=== PATIENT | female | born 1985 | race Caucasian/White ===

== ENCOUNTER → 2017-05-17 | Outpatient (CLI) | payer OTHER ==
[~2017-05-17] MED LIST: ALB18R INH; AMOX875T60 PO; BENZ200C15 PO; CEPH500C24 PO; CHOL10005 PO; CODE118S5 PO; GOLYTE PO; HYDR-2966 PO; HYDR2TAB74 PO; IBUP800T37 PO; LABE100T28 PO; PREN-127 PO; VENL75CA4 PO
== END ==
LOC: LAB 12:22
PROVIDERS: ATTEND Obstetrics & Gynecology
DX: O20.0 Threatened abortion (principal)
CPT/HCPCS: 36415; 84702; 86850; 86900; 86901

== ENCOUNTER → 2017-05-19 | Outpatient (CLI) | payer OTHER | LOC: LAB 11:08 | PROVIDERS: ATTEND Obstetrics & Gynecology | DX: O20.0 Threatened abortion (principal) | CPT/HCPCS: 36415; 84702 ==

== ENCOUNTER → 2017-08-08 | Outpatient (CLI) | payer OTHER ==
[~2017-08-08] MED LIST changes: +FLUT16SP19 NS; +MAGN27TA6 PO; +MULT-1335 PO
== END ==
LOC: LAB 15:00
PROVIDERS: ATTEND Obstetrics & Gynecology
DX: O26.812 Pregnancy related exhaustion and fatigue, second trimester (principal)
CPT/HCPCS: 36415; 84443

== ENCOUNTER → 2017-08-29 | Outpatient (CLI) | payer OTHER | LOC: LAB 14:58 | PROVIDERS: ATTEND Obstetrics & Gynecology | DX: O10.919 Unspecified pre-existing hypertension complicating pregnancy, unspecified trimester (principal) | CPT/HCPCS: 36415; 82040; 82247; 82310; 82374; 82435; 82565; 82570; 82947; 84075; 84132; 84155; 84156; 84295; 84450; 84460; 84520 ==

== ENCOUNTER → 2017-09-04 | Outpatient (CLI) | payer OTHER | LOC: LAB 08:16 | PROVIDERS: ATTEND Obstetrics & Gynecology | DX: I10 Essential (primary) hypertension (principal); O10.919 Unspecified pre-existing hypertension complicating pregnancy, unspecified trimester | CPT/HCPCS: 84156 ==

== ENCOUNTER → 2017-09-11 | Outpatient (CLI) | payer OTHER ==
--- NOTE | 2017-09-11 13:41 | RADIOLOGY IMAGING REPORT ---
FACILITY: [facility] [place] PATIENT NAME: Freda De Anda : 1985 MR: [id number] V: [id number] EXAM DATE: ORDERING PHYSICIAN: BLESSING HONG TECHNOLOGIST: Location: [facility] Patient: Freda De Anda : 1985 Visit/Account:[id number] Date of Sevice: 09/11/2017 OB ANATOMICAL SURVEY HISTORY: High-risk in second trimester COMPARISON: None. TECHNIQUE: Transabdominal imaging was performed for assessment of the fetus and maternal pelvic s tructures. Transvaginal imaging was not performed. FINDINGS: Intrauterine gestations: One. presentation: Breech. heart rate: 131 bpm. Amniotic fluid volume: Normal; JONNIE 19.4 cm; MVP 6.5 cm. Placenta: Anterior. Uterus: Gravid, otherwise grossly unremarkable where visualized. Maternal adnexa/ovaries: Grossly unremarkable, ovaries not visualized. Cervix: Grossly long and closed. Gestational Parameters: BPD: 4.8 HC: 18 AC: 15.5 FL: 3.6 Average ultrasound age (AUA): 20 weeks/ six days Estimated age based on LMP: 20 weeks/ two days Estimated weight (EFW): 383 grams +/- 56 grams Anatomic Survey: Intracranial structures, 4-chamber heart, stomach, kidneys, urinary bladder, spine, 3-vessel cord and cord insertion are unremarkable. Two upper and two lower extremities visualized. IMPRESSION: Single viable fetus in breech presentation with an estimated gestational age of 20 weeks and six days . Estimated weight 383 g +/- 56 g Report Dictated By: Leilani Leung MD at 09/11/2017 12:05 PM Report E-Signed By: Leilani Leung MD at 09/11/2017 1:36 PM WSN:[email or web address]
== END ==
LOC: RAD 07:55
PROVIDERS: ATTEND Obstetrics & Gynecology
DX: Z02.9 Encounter for administrative examinations, unspecified (principal)
CPT/HCPCS: 76811

== ENCOUNTER → 2017-10-23 | Outpatient (CLI) | payer OTHER ==
[~2017-10-23] MED LIST changes: +SERT-1 PO
--- NOTE | 2017-10-23 09:15 | RADIOLOGY IMAGING REPORT ---
FACILITY: [facility] PATIENT NAME: Freda De Anda : 1985 MR: [id number] V: [id number] EXAM DATE: ORDERING PHYSICIAN: BLESSING HONG TECHNOLOGIST: Location: [facility] [place] Patient: Freda De Anda : 1985 Visit/Account:[id number] Date of Sevice: 10/23/2017 Exam type: OB LIMITED History: Growth and JONNIE due to chronic HTN Comparison: September 11, 2017. Findings: There is a single fetus in cephalic presentation. The heart rate is 161 bpm. The placenta is anterior The JONNIE measures 22.81 cm.; MVP 8.85 cm Biparietal diameter 6.64 cm at the 57th percentile Head circumference 24.6 cm at the 37th percentile Abdominal circumference is 22.1 cm at the 49th percentile Femur length 4.82 cm at the 32nd percentile Estimated weight is 934 g +/- 137 g. The estimated gestational age by AUA: 26 weeks and five days Estimated gestational age by last menstrual period: 26 weeks two days. LMP percentile is 44% IMPRESSION: 1. Single viable fetus in cephalic presentation with an estimated gestational age by measurements of 26 weeks and five days. Estimated gestational age by last menstrual period is 26 weeks and two days . JONNIE 22.81 cm; MVP 8.85 cm Estimated weight 934 g +/- 137 g Report Dictated By: Leilani Leung MD at 10/23/2017 9:05 AM Report E-Signed By: Leilani Leung MD at 10/23/2017 9:11 AM WSN:[email or web address]
== END ==
LOC: RAD 08:06
PROVIDERS: ATTEND Obstetrics & Gynecology
DX: Z02.9 Encounter for administrative examinations, unspecified (principal)
CPT/HCPCS: 76815

== ENCOUNTER → 2017-11-03 | Outpatient (CLI) | payer OTHER ==
[~2017-11-03] MED LIST changes: +DIPH0.5D12 IM; +LABE200T31 PO
[2017-11-03 16:06] LABS: PLATELET COUNT, AUTOMATED 203 K/uL (150-450)
== END ==
LOC: LAB 14:40
PROVIDERS: ATTEND Obstetrics & Gynecology
DX: O09.92 Supervision of high risk pregnancy, unspecified, second trimester (principal); O10.919 Unspecified pre-existing hypertension complicating pregnancy, unspecified trimester
CPT/HCPCS: 36415; 82040; 82247; 82310; 82374; 82435; 82565; 82947; 82950; 84075; 84132; 84155; 84295; 84450; 84460; 84520; 85025

== ENCOUNTER 2017-11-06 06:24 | Observation (INO) | payer OTHER ==
[~2017-11-06] VITALS: Ht 167.6 cm; Wt 132.9 kg
[~2017-11-06 06:24] MED LIST changes: +LABE100T2 PO; -LABE100T28 PO; -LABE200T31 PO; +LABE200T35 PO
[2017-11-06 07:00] VITALS: BP 139/85; Ht 167.6 cm; Wt 132.9 kg
--- NOTE | 2017-11-06 07:14 | History & Physical ---
History of Present Illness EDC per U/S: Jan 27, 2018 Estimated Gestational Age: 28 Chief Complaint Decreased FM History of Present Illness 32yo at 28wks presents to L&D for decreased FM. She denies UCx or abdominal pain. No preeclampsia symptoms. PNC by IMG. c/b CHTN, obesity, depression/anxiety. She was recently started on Labetalol 200mg TID for BP. History Allergies: Coded Allergies: acetaminophen (Verified Allergy, Mild, NAUSEA/VOMITING, 04/20/15) hydrocodone (Verified Allergy, Mild, NAUSEA/VOMITING, 04/20/15) adhesive (Unverified Allergy, Unknown, 08/04/17) Social History: No T/E/D. Family History: Endometriosis MOTHER FH: arthritis MOTHER FH: cardiovascular disease PATERNAL GRANDPARENT FH: diabetes mellitus PATERNAL GRANDPARENT UNCLE FH: hypertension MOTHER FH: leukemia FH: melanoma FATHER Med Rec Home Meds Active Scripts Labetalol Hcl (LABETALOL HCL) 200 Mg Tablet, 200 MG PO TID, #90 TAB 5 Refills Prov:BLESSING HONG MD 11/03/17 Sertraline Hcl (ZOLOFT) 50 Mg Tablet, 1 TAB PO QDAY for 60 Days, #60 TAB 5 Refills Take 1/2 tablet po daily for one week, then increase to 1 tablet po daily Prov:BLESSING HONG MD 10/03/17 Fluticasone Prop 50 Mcg Ns (FLONASE 50 MCG NS) 16 Gm [place].susp, 2 SPRAYS NS QDAY, #1 BOT 3 Refills Prov:BLESSING HONG MD 08/08/17 Reported Medications Magnesium Amino Acid Chelate (MAGNESIUM) 27 Mg Tablet, 27 MG PO 08/08/17 Cholecalciferol (Vitamin D3) (VITAMIN D3) 1,000 Unit Tablet, 1000 UNIT PO QDAY, TAB 06/08/16 Vits W-Ca,Fe,Fa(<1MG) ( VITAMINS) 1 Each Tablet, 1 EACH PO DAILY, TAB 06/08/16 Review of Systems Constitutional: No Fever Eyes: No Vision Change Cardiovascular: No Chest Pain, No Palpitations Respiratory: No Shortness of Breath, No Cough Gastrointestinal: No Nausea, No Vomiting, No Diarrhea Psychiatric: Depression, Anxiety Exam General Exam Vital Signs VS reviewed Fetus Heart Tone Variabilty: Moderate FHT Accelerations: 15X15 FHT Decelerations: None FHT Category: I Assessment and Plan Problems: (1) Decreased movement Assessment & Plan: 32yo at 28wks presents for decreased FM. NST reviewed and is reactive. While being on L&D the FM improved significantly. BP is very good with the Labetalol. Reassurance given. (2) 28 weeks gestation of Problem Qualifiers (1) Decreased movement: Fetus number: single or unspecified fetus Trimester: second trimester Qualified Codes: O36.8120 - Decreased movements, second trimester, not applicable or unspecified BLESSING HONG MD Nov 06, 2017 07:14
== END 2017-11-06 07:01 | disposition home or self-care (01) ==
LOC: OB 06:24
PROVIDERS: ADMIT Obstetrics & Gynecology; ATTEND Obstetrics & Gynecology
DX: O36.8130 Decreased fetal movements, third trimester, not applicable or unspecified (principal); Z3A.28 28 weeks gestation of pregnancy
CPT/HCPCS: 59025; G0378; G0379

== ENCOUNTER → 2017-11-13 | Outpatient (CLI) | payer OTHER ==
[2017-11-06 07:00] VITALS: BMI 47.3
--- NOTE | 2017-11-14 02:05 | RADIOLOGY IMAGING REPORT ---
FACILITY: [facility] PATIENT NAME: Freda De Anda : 1985 MR: [id number] V: [id number] EXAM DATE: ORDERING PHYSICIAN: BLESSING HONG TECHNOLOGIST: Location: [facility] [place] Patient: Freda De Anda : 1985 Visit/Account:[id number] Date of Sevice: 11/13/2017 EXAMINATION: LIMITED OB ULTRASOUND DATE: 11/13/2017 9:36 AM. INDICATION: Growth and fluid check for HTN. COMPARISON: 10/23/2017. TECHNIQUE: Grayscale, color Doppler and M-mode ultrasound images of the fetus and maternal organs wer e obtained. FINDINGS: Estimated date of delivery: 01/27/2018. Age by dates: 29 weeks, 2 days Number of fetuses: 1 position: Breech Placental location: Anterior, no previa. Amniotic fluid volume: The maximum vertical pocket measures 6.2 cm and the amniotic fluid index is 22 .9 cm. Biometry as follows: Biparietal diameter: 7.60 cm 30 weeks, 4 days Head circumference: 28.59 cm 31 weeks, 3 days Abdominal circumference: 25.12 cm 29 weeks, 3 days Femur length: 5.77 cm 30 weeks, 2 days Average age by ultrasound: 30 weeks, 3 days Estimated weight: 1474 gm weight percentile: 60th %tile Full anatomic survey not performed. heart rate is 135 BPM. IMPRESSION: 1. Single intrauterine gestation with average ultrasound age of 30 weeks 3 days, corresponding to es tablished gestational age of 29 weeks 2 days. Estimated weight is in the 60th %tile. 2. The maximum vertical pocket measures 6.2 cm and the amniotic fluid index is 22.9 cm. Report Dictated By: Tommie Baez MD at 11/14/2017 1:53 AM Report E-Signed By: Tommie Baez MD at 11/14/2017 2:01 AM WSN:[id number]
== END ==
LOC: RAD 09:24
PROVIDERS: ATTEND Obstetrics & Gynecology
DX: Z02.9 Encounter for administrative examinations, unspecified (principal)

== ENCOUNTER → 2017-12-11 | Outpatient (CLI) | payer OTHER ==
[2017-11-06 07:00] VITALS: BMI 47.3
--- NOTE | 2017-12-11 11:12 | RADIOLOGY IMAGING REPORT ---
FACILITY: [facility] [place] PATIENT NAME: Freda De Anda : 1985 MR: [id number] V: [id number] EXAM DATE: ORDERING PHYSICIAN: BLESSING HONG TECHNOLOGIST: Location: [facility] Patient: Freda De Anda : 1985 Visit/Account:[id number] Date of Sevice: 12/11/2017 [facility] OB LIMITED HISTORY: Chronic hypertension affecting , supervision of high risk COMPARISON: November 13, 2017 TECHNIQUE: Transabdominal imaging was performed for assessment of the fetus and maternal pelvic s tructures. Transvaginal imaging was not performed. FINDINGS: Intrauterine gestations: One. presentation: Breech presentation with the head towards the anterior maternal left. heart rate: 143 bpm. Amniotic fluid volume: Polyhydramnios; JONNIE 24.2 cm; MVP 7 cm. Placenta: Anterior towards the right. Uterus: Gravid, otherwise grossly unremarkable where visualized. Maternal adnexa/ovaries: Grossly unremarkable, ovaries not visualized. Cervix: Not imaged. Gestational Parameters: BPD: 8.52 cm, 75th percentile HC: 30.95 cm, 46th percentile AC: 29.67 cm, 63rd percentile FL: 6.54 cm, 50th percentile Average ultrasound age (AUA): 34 weeks/ one days Estimated age based on LMP: 33 weeks/ two days Estimated weight (EFW): 2285 grams +/- 334 grams Anatomic Survey: anatomic survey was not performed. IMPRESSION: Single viable fetus in breech presentation with an estimated gestational age by measurements of 34 we eks and one day. Estimated weight by last menstrual period is 33 weeks and two days Estimated weight is 2285 g There is polyhydramnios with an JONNIE of 24.2 cm Report Dictated By: Leilain Leung MD at 12/11/2017 10:59 AM Report E-Signed By: Leilani Leung MD at 12/11/2017 11:08 AM WSN:[email or web address]
== END ==
LOC: RAD 08:11
PROVIDERS: ATTEND Obstetrics & Gynecology
DX: Z02.9 Encounter for administrative examinations, unspecified (principal)

== ENCOUNTER → 2017-12-15 | Outpatient (CLI) | payer OTHER ==
[2017-11-06 07:00] VITALS: BMI 47.3
== END ==
LOC: LAB 15:55
PROVIDERS: ATTEND Obstetrics & Gynecology
DX: O10.919 Unspecified pre-existing hypertension complicating pregnancy, unspecified trimester (principal)
CPT/HCPCS: 36415; 82040; 82247; 82310; 82374; 82435; 82565; 82570; 82947; 84075; 84132; 84155; 84156; 84295; 84450; 84460; 84520; 85027

== ENCOUNTER 2017-12-16 14:31 | Outpatient (CLI) | payer OTHER ==
[~2017-12-16] VITALS: Ht 167.6 cm; Wt 140.2 kg
[2017-12-16 15:38] VITALS: BP 139/79; Ht 167.6 cm; Wt 140.2 kg
[2018-01-02] MEDS ORDERED: ACET-1966 PO (18:41)
== END 2017-12-16 16:00 | disposition home or self-care (01) ==
LOC: UNDOADMIN 14:31 → OB 14:31 → L&D 14:31 → UNDODISIN 16:00 → EDSTATUS 12-19 07:54
PROVIDERS: ATTEND Obstetrics & Gynecology
DX: O26.893 Other specified pregnancy related conditions, third trimester (principal); Z3A.34 34 weeks gestation of pregnancy
CPT/HCPCS: 99213

== ENCOUNTER → 2017-12-19 | Outpatient (CLI) | payer OTHER ==
[2017-12-16 15:38] VITALS: BMI 49.9
== END ==
LOC: LAB 16:11
PROVIDERS: ATTEND Obstetrics & Gynecology
DX: O09.93 Supervision of high risk pregnancy, unspecified, third trimester (principal)
CPT/HCPCS: 82570; 84156; 87081

== ENCOUNTER → 2017-12-26 | Outpatient (CLI) | payer OTHER ==
[2017-12-16 15:38] VITALS: BMI 49.9
== END ==
LOC: LAB 07:53
PROVIDERS: ATTEND Obstetrics & Gynecology
DX: O10.919 Unspecified pre-existing hypertension complicating pregnancy, unspecified trimester (principal)
CPT/HCPCS: 82570; 84156

== ENCOUNTER → 2018-01-02 | Outpatient (CLI) | payer OTHER ==
[2017-12-16 15:38] VITALS: BMI 49.9
[~2018-01-02] MED LIST changes: +ACET-1966 PO
== END ==
LOC: LAB 15:02
PROVIDERS: ATTEND Obstetrics & Gynecology
DX: O09.90 Supervision of high risk pregnancy, unspecified, unspecified trimester (principal); O10.919 Unspecified pre-existing hypertension complicating pregnancy, unspecified trimester
CPT/HCPCS: 82570; 84156

== ENCOUNTER → 2018-01-04 | Outpatient (CLI) | payer OTHER ==
[2017-12-16 15:38] VITALS: BMI 49.9
--- NOTE | 2018-01-04 13:34 | RADIOLOGY IMAGING REPORT ---
FACILITY: [facility] PATIENT NAME: Freda De Anda : 1985 MR: [id number] V: [id number] EXAM DATE: ORDERING PHYSICIAN: BLESSING HONG TECHNOLOGIST: Location: [facility] [place] Patient: Freda De Anda : 1985 Visit/Account:[id number] Date of Sevice: 01/04/2018 OB Ultrasound > 14 weeks with anatomic evaluation. 3-D imaging was performed by the technologis t according to protocols developed by the radiologists and the facility radiology staff. Representat kim images are stored on PACS. HISTORY: Growth and JONNIE COMPARISON STUDIES: None available FINDINGS: Intrauterine gestations: one presentation: Vertex heart rate: 144 bpm Amniotic fluid index: 17.9 cm Largest amniotic fluid pocket 6.4 cm Placenta: Anterior without previa Uterus: gravid, otherwise normal Gestational Parameters: BPD: 8.8 cm 36 weeks, 0 days HC: 32.8 cm 37 weeks, 3 days AC: 34.5 cm 38 weeks, 4 days FL: 7.6 cm 39 weeks, 1 day Average ultrasound age (AUA): 37 weeks, 6 days SANTOS: 01/27/2018 Estimated weight (EFW): 3415 gm IMPRESSION: 1. Single live intrauterine gestation; estimated ultrasound age 37 weeks, 6 days. 2. Vertex positioning. 3. JONNIE: 17.9 cm. Report Dictated By: Gera Carrasquillo DO at 01/04/2018 1:21 PM Report E-Signed By: Gera Carrasquillo DO at 01/04/2018 1:31 PM WSN:[email or web address]
== END ==
LOC: RAD 09:32
PROVIDERS: ATTEND Obstetrics & Gynecology
DX: Z02.9 Encounter for administrative examinations, unspecified (principal)

== ENCOUNTER 2018-01-10 15:15 | Outpatient (RCR) | payer OTHER ==
--- NOTE | 2017-11-29 17:03 | PT INITIAL EVALUATION ---
MEDICAL DIAGNOSIS: O09.93 Supervision of high risk in third trimester , O99.89 Back pain affecting in third trimester TREATMENT DIAGNOSIS: O99.89, Lumbar and SI pain in third trimester DATE OF ONSET: 10/29/17 SUBJECTIVE: Freda De Anda presents to PT for a return of LBP about one month ago, in her third trimester of her . She had one ectopic in 2017. She has HTN in this and relates it's been dropping. She would like to sleep without awakening due to LBP. Pain location is R L-S/SI, intermittent R L5/S1 to the foot and described as ache, shooting R L5/S1. Pain scale is 2 on a ten point pain scale. Pain is worse with trying to sleep (6/10) , walking, standing and better with sometimes walking. She did well with lumbar treatment here before with ROM, core strengthening exercise. SANTOS 01/27/18, induction is expected to go to 38 weeks. REHAB PROBLEM LIST: Increased Pain, Decreased Core Strength, Decreased Sleep and Walking Function PREVIOUS MEDICAL HISTORY: HTN, LBP with L4/5/S1 DDD, ovarian cyst. OCCUPATION: [employer], [employer]. OBJECTIVE: Posture: R posterior and L anterior ilium. ROM: AROM lumbar spine WNL for gestation with extension, R sidebend reducing R LBP. SI AROM with tight R SI movement. Hip PROM WNL without symptom reproduction. Strength: Padilla muscles L2-S1 intact for motor function. Palpation: Tight L>R lumbar extensors, painful R L4/5/S1 interspinous region, R posterior SI joint line, tight piriformis and psoas. Myofascial restrictions presents in the lumbar and posterior hips. Special Tests: Negative SLR, B. Hypermobile lumbar facets with eccentric lumbar loading. Mobility: Independent. Gait: Apparent long L LE with ER L LE line of progression. Other Objective Findings: BP 146/62 R UE seated at rest. ASSESSMENT: Freda De Anda presents with SI joint dysfunction and lumbar facet hypermobility consistent with third trimester ligament laxity from relaxin hormone. She did well with manual therapy, HEP instruction with less LBP, even pelvic alignment and even gait with normal angle of progression. Short Term Goals 4-6 weeks: Freda sleeps through the night without awakening due to SI/LBP. Patient's Goals Sleep through the night without awakening due to SI/LBP. PLAN: Patient to be seen for Manual Therapy, Strengthening, Ice/Heat, Range of Motion, Spinal Stabilization, Stretching, Posture/Body mechanics, Home Exercise Program 2x/Week for 6 Weeks Thank you for this referral. If you have any questions, comments, or concerns about this report or plan, please contact me at . [facility]
[2017-12-16 15:38] VITALS: BMI 49.9
--- NOTE | 2018-01-03 18:16 | PT PLAN OF CARE ---
Physician: Dr. Susan Johansen Patient is being seen: 2x/week Therapist: Anita Campbell, PT Medical Diagnosis: O09.93 Supervision of high risk in third trimester, O99.89 Back pain affecting in third trimester Treatment Diagnosis: Lumbar and SI pain in third trimester Date of Onset: 10/29/17 Date of Initial Evaluation: 11/29/17 Date patient was last seen: 01/03/18 Number of treatments: 10 Number of cancellations/No shows: 0 INTERVENTIONS: Manual Therapy, SI/Pelvic alignment exercise, Home Exercise Program GOALS: 4-6 weeks: Freda sleeps through the night without awakening due to SI/LBP (progressing). PATIENT'S GOAL: Sleep through the night without awakening due to SI/LBP (progressing). Patient Compliance: Excellent Prognosis: Excellent Reasons for continuing therapy: S: Freda relates her R SI/LBP is reduced overall. Her advanced trimester is affecting sleep while SI pain is not as severe at night. She reports her BP monitoring is about average. O: Posture: Mild R posterior ilium. ROM: AROM lumbar spine WNL for gestation. SI AROM WNL for gestation. Palpation: Higher tone, tightness R posterior hip, extending into the lower thoracic spine. Special Tests: BP today after walking to the clinic 148/95. Other days BP has been below 140 systolic. Mobility: Independent. A/P: Freda De Anda is doing well with gentle PT to reduce R SI pain as her last trimester finishes. If you agree, we'll continue 2x/week through next week. Thank you. LUIS MIGUEL
[~2018-01-10 15:15] MED LIST changes: -PER PO
--- NOTE | 2018-01-15 08:05 | PT PLAN OF CARE ---
Physician: Dr. Susan Johansen Patient is being seen: 2x/week Therapist: Anita Campbell, PT Medical Diagnosis: O09.93 Supervision of high risk in third trimester, O99.89 Back p Treatment Diagnosis: Lumbar and SI pain in third trimester Date of Onset: 10/29/17 Date of Initial Evaluation: 11/29/17 Date patient was last seen: 01/10/18 Number of treatments: 12 Number of cancellations/No shows: 0 INTERVENTIONS: Manual Therapy, Stretching, Home Exercise Program GOALS: 4-6 weeks: Freda sleeps through the night without awakening due to SI/LBP (not met). PATIENT'S GOAL: Sleep through the night without awakening due to SI/LBP (not met). Patient Compliance: Excellent Prognosis: Excellent Reasons for discontinuing therapy: S: Freda has delivered via . She'd reported her R SI joint still bothered her at night, but less intense. O: At the last few visits, SI alignment was even, R L-S/gluteal muscles were more sore and higher tone than L. A/P: Freda De Anda reduced, but didn't alleviate her R SI pain. I'll close her PT case for now while she heals in the post-op phase. If she needs further PT, I would be happy to work with her. Thank you. LUIS MIGUEL
== END 2018-01-10 18:00 | disposition home or self-care (01) ==
LOC: PT 15:15
PROVIDERS: ATTEND Obstetrics & Gynecology
DX: O99.89 Other specified diseases and conditions complicating pregnancy, childbirth and the puerperium (principal); O09.93 Supervision of high risk pregnancy, unspecified, third trimester; M54.5 Low back pain; O13.3 Gestational [pregnancy-induced] hypertension without significant proteinuria, third trimester
CPT/HCPCS: 97162

== ENCOUNTER → 2018-01-10 | Outpatient (CLI) | payer OTHER ==
[2017-12-16 15:38] VITALS: BMI 49.9
[~2018-01-10] MED LIST changes: +BET6I IM ONLY; +PER PO
== END ==
LOC: LAB 13:24
PROVIDERS: ATTEND Obstetrics & Gynecology
DX: Z02.9 Encounter for administrative examinations, unspecified (principal)

== ENCOUNTER 2018-01-11 20:41 | Inpatient (IN) | payer OTHER ==
[~2018-01-11] VITALS: Ht 167.6 cm; Wt 144.2 kg
[2018-01-11] MEDS ORDERED: ceFAZolin(*) 2GM/D5W 50ML 50 ML IVPB PRN (20:44)
[2018-01-11] MEDS ORDERED: FAMOTIDINE(*) 20MG/50ML PREMIX 50 ML IVPB PRN (20:44)
[2018-01-11] MEDS ORDERED: fentaNYL CITR 100 MCG/2 ML AMP IVP PRN (20:45)
[2018-01-11] MEDS ORDERED: ACETAMINOPHEN 500 MG TAB PO PRN (20:45)
[2018-01-11] MEDS ORDERED: DINOPROSTONE 10 MG INSERT PV ONE (20:45)
[2018-01-11] MEDS ORDERED: METOCLOPRAMIDE 10 MG/2 ML SDV IVP PRN (20:45)
[2018-01-11] MEDS ORDERED: ZOLPIDEM TARTRATE 5 MG TAB PO PRN (20:45)
[2018-01-11] MEDS ORDERED: TERBUTALINE SULF 1 MG/ML VIAL SUBQ PRN (20:45)
[2018-01-11] MEDS ORDERED: LIDOCAINE 1% LOCAL 300 MG/30ML INJ PRN (20:45)
[2018-01-11 21:15] VITALS: BP 148/86; Ht 167.6 cm; Wt 144.2 kg
[2018-01-11 21:35] LABS: PLATELET COUNT, AUTOMATED 222 K/uL (150-450)
[2018-01-11] MEDS ORDERED: OXYTOCIN 30 UNIT/D5LR 500 ML 500 ML IV PRN (23:39)
[2018-01-11] MEDS ORDERED: BUPIVACAINE 0.25% MPF INJ EPI PRN (23:40)
[2018-01-11] MEDS ORDERED: EPIDURAL KEYS XX PRN (23:40)
[2018-01-11] MEDS ORDERED: LIDO/EPI 2% MPF 1:200,000 20ML EPI PRN (23:40)
[2018-01-11] MEDS ORDERED: LIDOCAINE/PF 2% 200MG/10ML AMP 200 MG/10 ML AMPUL EPI PRN (23:40)
[2018-01-12] MEDS ORDERED: ZOLPIDEM TARTRATE 5 MG TAB PO PRN (00:30)
[2018-01-12] MEDS ORDERED: OXYTOCIN 30 UNIT/D5LR 500 ML 500 ML IV PRN ×2 (06:38→08:11)
[2018-01-12] MEDS ORDERED: MISOPROSTOL 25 MCG CAP PV PRN (06:40)
--- NOTE | 2018-01-12 08:35 | History & Physical ---
History of Present Illness EDC per U/S: Jan 27, 2018 Estimated Gestational Age: 37.5 Chief Complaint Induction of labor History of Present Illness 32yo at 37w5d presents for induction due to CHTN. She reports FM. No UCx, VB, LOF, preeclampsia symptoms. PNR reviewed. PNC by [facility]. c/b CHTN, morbid obesity, depression and anxiety. She is GBS negative. Anterior placenta. History Patient's Blood Type: O Positive Rubella Status: Immune Group B Strep Screen: Negative Obstetrical History: G1: 09/2016 Ectopic tx with MTX G2: Current Past Medical History: PMH: PCOS, anxiety/depression, PCOS, allergic rhinitis PSH: Colonoscopy/EGD, 2014 dx lscope with left ovarian cystectomy, chromopertubation, dx hscope Allergies: Coded Allergies: acetaminophen (Verified Allergy, Mild, NAUSEA/VOMITING, 04/20/15) hydrocodone (Verified Allergy, Mild, NAUSEA/VOMITING, 04/20/15) adhesive (Unverified Allergy, Unknown, 08/04/17) Social History: No T/E/D. . Family History: Endometriosis MOTHER FH: arthritis MOTHER FH: cardiovascular disease PATERNAL GRANDPARENT FH: diabetes mellitus PATERNAL GRANDPARENT UNCLE FH: hypertension MOTHER FH: leukemia FH: melanoma FATHER Med Rec Home Meds Active Scripts Sertraline Hcl (ZOLOFT) 50 Mg Tablet, 1 TAB PO QDAY for 60 Days, #60 TAB 5 Refills Take 1/2 tablet po daily for one week, then increase to 1 tablet po daily Prov:BLESSING HONG MD 10/03/17 Reported Medications Acetaminophen (TYLENOL) 325 Mg Tablet, 325 MG PO, TAB 01/02/18 Vits W-Ca,Fe,Fa(<1MG) ( VITAMINS) 1 Each Tablet, 1 EACH PO DAILY, TAB 06/08/16 Review of Systems Constitutional: No Fever Neurological: No Syncope Eyes: No Vision Change Cardiovascular: No Chest Pain, No Palpitations Respiratory: No Shortness of Breath, No Cough, No Wheezing Gastrointestinal: No Nausea, No Vomiting, No Diarrhea Genitourinary: No Dysuria Musculoskeletal: No Pain Psychiatric: Depression, Anxiety Exam General Exam Vital Signs Vital Signs Date Time Temp Pulse Resp B/P (MAP) Pulse Ox O2 Delivery O2 Flow Rate FiO2 01/11/18 21:15 97.9 97 16 148/86 (106) 96 Room Air P 96.3F BP 138/73 P 102 R 20 General Apperance: Alert/Awake/No Acute Distress Neuro: No Gross deficits Eyes: Normal Extraocular Movement & Vison Cardiovascular: Regular Rate and Rhythm Respiratory: No Respiratory Distress, Clear to Auscultation Abdomen: Gravid - Non-Tender : Normal Musculoskeletal: No Weakness/Pain Extremities: No Cyanosis,Clubbing or Edema Integumentary: Skin Intact without Lesions or Rash Psychological: Alert & Oriented X3, Appropriate Mood & Affect Cervical Dialation: 1 Cervical Effacement (%): 50 Cervical Consistency: Moderate Cervical Position: Posterior Station: -3 Presentation: Vertex Uterine Contractions(Q min): 0 Fetus FHT Category: I Medical Decision Making Data Points Result Diagram: 01/11/18212401/11/182124 Pre-Admit Course Medical Record Review: Yes Assessment and Plan Problems: (1) Chronic hypertension affecting Assessment & Plan: 32yo at 37w5d presenting for induction. She did have steroids prior to induction. Initial labs are repeated now upon admission to rule out progression to preeclampsia, but her BP are ok. She had been breech, but is confirmed cephalic. Cervix is unfavorable. Will initiate cervadil therapy overnight and monitor closely. (2) Obesity complicating Assessment & Plan: Plan SCDs while in labor. will initiate Lovenox therapy. Problem Qualifiers (1) Obesity complicating : Trimester: third trimester Qualified Codes: O99.213 - Obesity complicating , third trimester BLESSING HONG MD Jan 11, 2018 20:57
--- NOTE | 2018-01-12 08:38 | Labor Progress Note ---
Labor Subjective Progress Notes Subjective Pt feeling some cramping and contractions. +FM. No VB, LOF. No preeclampsia symptoms. Slept overnight. Labor Objective Vital Signs Vital Signs Date Time Temp Pulse Resp B/P (MAP) Pulse Ox O2 Delivery O2 Flow Rate FiO2 01/11/18 21:15 97.9 97 16 148/86 (106) 96 Room Air Cervical Dialation: 3 Cervical Effacement (%): 50 Cervical Consistency: Moderate Cervical Position: Posterior Station: -2 Presentation: Vertex Uterine Contractions(Q min): 5 Uterine Contraction Strength: Mild UC Resting Tone: Soft Fetus FHT Category: I General Exam General Appearance: Alert/Awake/No Acute Distress Cardiovascular: Normal Rhythm & Peripheral Pulses Respiratory: No Respiratory Distress, Clear to Auscultation Abdomen: Gravid - Non-Tender Extremities: No Cyanosis,Clubbing or Edema Integumentary: Skin Intact without Lesions or Rash Psychological: Alert & Oriented X3, Appropriate Mood & Affect Other Result Diagram: 01/11/18212401/11/182124 Assessment and Plan Problems: (1) Chronic hypertension affecting Assessment & Plan: Pr:Cr = 0.44 which would be consistent with superimposed preeclampsia. This does not change our management at this time. Her cervix is more favorable, so will start pitocin. Plan AROM after more effacement has occurred. Will proceed with epidural for pain control when she is ready. Monitor BP closely. (2) Obesity complicating Assessment & Plan: Plan SCDs while in labor. will initiate Lovenox therapy. Problem Qualifiers (1) Obesity complicating : Trimester: third trimester Qualified Codes: O99.213 - Obesity complicating , third trimester BLESSING HONG MD Jan 12, 2018 08:38
[2018-01-12] MEDS: fentaNYL CITR 100 MCG/2 ML AMP IT PRN ×2 (09:49→23:39)
[2018-01-12] MEDS: FENTANYL/ROPIVACAINE 100 ML BAG EPI PRN ×2 (09:50→16:00)
[2018-01-12] MEDS: LR(*) 1000 ML BAG 1,000 ML IV PRN ×2 (10:29→18:01)
[2018-01-12] MEDS: ONDANSETRON 4 MG/2 ML VIAL IVP PRN ×2 (12:08→19:16)
--- NOTE | 2018-01-12 12:09 | Anesthesia OB Pre-Anes Eval ---
History of Present Illness Anesthesia Start Date: Jan 12, 2018 Anesthesia Start Time: 09:50 OB Anesthesia Diagnosis: gestational hypertension, induction - elective EDC: Jan 27, 2018 : 2 Para: 0 Pain Ratin Result Diagram: 01/11/18212401/11/182124 Height (Inches): 66.00 Weight (Pounds): 318 BMI Calculated: 51.32 Past Medical History Medical History: hypertension, obesity Surgical History: other (cystoscopy and epidural for back pain) Previous Anesthesia: epidural Attended Childbirth Classes?: No Hx Anesthesia Reactions: No Hx Family Anesthesia Reaction: No Past Complications: gestational hypertention Home Meds Active Scripts Sertraline Hcl (ZOLOFT) 50 Mg Tablet, 1 TAB PO QDAY for 60 Days, #60 TAB 5 Refills Take 1/2 tablet po daily for one week, then increase to 1 tablet po daily Prov:BLESSING HONG MD 10/03/17 Reported Medications Acetaminophen (TYLENOL) 325 Mg Tablet, 325 MG PO, TAB 01/02/18 Vits W-Ca,Fe,Fa(<1MG) ( VITAMINS) 1 Each Tablet, 1 EACH PO DAILY, TAB 06/08/16 Allergies: Coded Allergies: acetaminophen (Verified Allergy, Mild, NAUSEA/VOMITING, 04/20/15) hydrocodone (Verified Allergy, Mild, NAUSEA/VOMITING, 04/20/15) adhesive (Unverified Allergy, Unknown, 08/04/17) Anesthesia OB ROS Eyes ROS: other (na) Airway Class: lll GI ROS: clear liquids ASA Classification: 2, E Assessment and Plan Anesthesia Plan: LEB Assessment: difficult placement. bascially 4 different sites were attempted. midline difficult to determine, last attempt moved left with success. Assessment pain score 2 upon leaving the room. MARTÍN DIAZ CRNA Jan 12, 2018 12:09
--- NOTE | 2018-01-12 12:19 | Procedure Note ---
Anesthetic Placement Note Anesthesia Plan: LEB Permit for Anesthesia Signed: Yes Anesthesia Technique: Patient Sitting Anesthesia Prep: Betadine Interspace: L 2-3 Local Anesthetic: 1% Lidocaine, Other Amount Local - cc's: 10 Anesthesia Needle: 17g Touhy/Schliff Anesthesia Attempts: 4 Loss of Resistance: Air Depth of KIRILL (cm): 5 Catheter Insertion (cm): 5 Catheter Type: Yang - Spring Wound Epidural Dressing: Tegaderm Anesthesia Tray: Lot Number ([id number]), Expiration Date (2019-01-28), Reference Number ([id number]) Comment: difficult to determine midline. basically 4 attempts, moved left with last attempt and success. despite difficulty pt. did well. Anesthesia Medications: Epidural Test Dose: 1.5 Lido/Epi (1:200,000), Dose - mL (5), Time (1017), Negative Epidural Loading Dose: 0.2% Ropivicaine, With Fentanyl 2mcg/ml, Dose - ml (1024), Time (1024) Epidural Infusion: 0.2% Ropivicaine, With Fentanyl 2mcg/ml, Start Time: (1030) Epidural Pump Setting: Bolus Dose - mL (4), Lockout - Minutes (10), Maintenance Rate - mL/hr (12), Maximum per Hour - mL (20) Complications: None Comment: pain score 1-2 MARTÍN DIAZ CRNA Jan 12, 2018 12:19
--- NOTE | 2018-01-12 12:38 | Procedure Note ---
Anesthesia Medications: Comment: late entry, loading dose included fentany 100 mcgs. MARTÍN DIAZ CRNA Jan 12, 2018 12:38
--- NOTE | 2018-01-12 13:05 | Labor Progress Note ---
Labor Subjective Progress Notes Subjective Comfortable s/p epidural. No headache or visual changes. Good movement. Feeling Movement?: Yes Vaginal Discharge/Fluid: No Bloody Show, No Clear Fluid, No Bloody Fluid, No Green Tinged Fluid, No Dark Green Fluid, No Mucous, No Small Amount, No Moderate Amount, No Large Amount, No Other Labor Pain: Mild Neurological: No Headache, No Other Eyes: No Visual Disturbances Labor Objective Vital Signs Vital Signs Date Time Temp Pulse Resp B/P (MAP) Pulse Ox O2 Delivery O2 Flow Rate FiO2 01/11/18 21:15 97.9 97 16 148/86 (106) 96 Room Air Vaginal Discharge/Fluid?: Clear Fluid Cervical Dialation: 3 Cervical Effacement (%): 50 Cervical Consistency: Moderate Cervical Position: Mid Station: -2 Presentation: Vertex Uterine Contractions(Q min): 3 Uterine Contraction Strength: Moderate Fetus FHT Category: I Other Result Diagram: 01/11/18212401/11/182124 Assessment and Plan OXYGEN THERAPY TEACHER Assessment: Stable OXYGEN THERAPY TEACHER Plan: Routine Labor/Induct Care Problems: (1) Chronic hypertension affecting Assessment & Plan: S/P epidural and arom. Increase oxytocin to adequate pattern. (2) Obesity complicating Problem Qualifiers (1) Obesity complicating : Trimester: third trimester Qualified Codes: O99.213 - Obesity complicating , third trimester JAYA TAVAREZ DO Jan 12, 2018 13:05
--- NOTE | 2018-01-12 15:52 | Labor Progress Note ---
Labor Subjective Progress Notes Subjective Sleeping comfortably. Feeling Movement?: Yes Vaginal Discharge/Fluid: Clear Fluid Labor Pain: Mild Neurological: No Headache, No Other Eyes: No Visual Disturbances Labor Objective Vital Signs Vital Signs Date Time Temp Pulse Resp B/P (MAP) Pulse Ox O2 Delivery O2 Flow Rate FiO2 01/11/18 21:15 97.9 97 16 148/86 (106) 96 Room Air Vaginal Discharge/Fluid?: Clear Fluid Cervical Dialation: 3.5 Cervical Effacement (%): 75 Cervical Consistency: Moderate Cervical Position: Mid Presentation: Vertex Fetus FHT Category: I Other Result Diagram: 01/11/18212401/11/182124 Assessment and Plan Problems: (1) Chronic hypertension affecting Assessment & Plan: No headache or visual change. Continue oxytocin to get adequate pattern. If no change consider IUPC to check adequacy of contractions. Expect/Hope for . (2) Obesity complicating Problem Qualifiers (1) Obesity complicating : Trimester: third trimester Qualified Codes: O99.213 - Obesity complicating , third trimester JAYA TAVAREZ DO Jan 12, 2018 15:52
[2018-01-12] MEDS ORDERED: ACETAMINOPHEN 500 MG TAB PO ONE (18:15)
[2018-01-12] MEDS: DLR(*) 1000 ML BAG 1,000 ML IV PRN (18:49)
--- NOTE | 2018-01-12 19:07 | Labor Progress Note ---
Labor Subjective Progress Notes Subjective Headache gone with medication. No visual changes or RUQ pain. Feeling Movement?: Yes Vaginal Discharge/Fluid: Clear Fluid Labor Pain: Mild Neurological: Headache Eyes: No Visual Disturbances Labor Objective Vital Signs Vital Signs Date Time Temp Pulse Resp B/P (MAP) Pulse Ox O2 Delivery O2 Flow Rate FiO2 01/11/18 21:15 97.9 97 16 148/86 (106) 96 Room Air Cervical Dialation: 3 Cervical Effacement (%): 50 Cervical Consistency: Moderate Cervical Position: Mid Station: -2 Presentation: Vertex Uterine Contractions(Q min): 2 Uterine Contraction Strength: Moderate UC Resting Tone: Soft Fetus Heart Tones: 140 Heart Tone Variabilty: Moderate FHT Accelerations: 15X15 FHT Decelerations: None FHT Category: I Other Result Diagram: 01/11/18212401/11/182124 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 Will repeat labs around - 2099. IUPC and FSE placed. Cervix still mid position and to patient left. If contraction pattern remains adequate will leave oxytocin at 20 mU/min. Problem Qualifiers (1) Obesity complicating : Trimester: third trimester Qualified Codes: O99.213 - Obesity complicating , third trimester JAYA TAVAREZ DO Jan 12, 2018 19:07
--- NOTE | 2018-01-12 23:50 | Anesthesia Progress Note ---
Progress/Maintenance Anesthesia Note Time: 23:46 Pain Intensity: 5 Pump: On Pump Rate (ML/HR): 12 Dilatation: 4 Position: Left, Tilt Drug Bolus: 0.2% Ropivicaine, Fentanyl 2mcg/ml (3 ml) Anesthesia Treatment: epidural catheter bolused with 100 mcg fentanyl & 3 ml 0.2 ropiv w/fentanyl ANGELIQUE SEARS CRNA Jan 12, 2018 23:50
[2018-01-13] VITALS (16 sets, daily range): BP systolic 120–172; BP diastolic 67–92
[2018-01-13] MEDS: FENTANYL/ROPIVACAINE 100 ML BAG EPI PRN (01:56)
--- NOTE | 2018-01-13 02:17 | Procedure Note ---
Anesthesia Medications: Epidural Pump Setting: Bolus Dose - mL (4), Lockout - Minutes (15), Maintenance Rate - mL/hr (12), Maximum per Hour - mL (28) Comment: Epidural bolus dosing changed from 30 minute intervals to 15 minute intervals due to patient pain level not comfortable. ANGELIQUE SEARS SHIPPING/RECEIVING CLERK Jan 13, 2018 02:17
--- NOTE | 2018-01-13 04:45 | Anesthesia Progress Note ---
Progress/Maintenance Anesthesia Note Date: Jan 13, 2018 Anesthesia Note Time: 04:41 Pain Intensity: 7 Pump: On Pump Rate (ML/HR): 12 Dilatation: 7 Drug Bolus: 0.25% Marcaine (7 ml) MARTÍN DIAZ CRNA Jan 13, 2018 04:44
[2018-01-13] MEDS: LR(*) 1000 ML BAG 1,000 ML IV PRN (05:24)
[2018-01-13] MEDS ORDERED: LIDO/EPI 2% MPF 1:200,000 20ML ONE ×2 (06:54→09:00)
[2018-01-13] MEDS ORDERED: NS 0.9% 20 ML SDV 20 ML ONE (07:00)
[2018-01-13] MEDS ORDERED: PHENYLEPHRINE 10 MG/1 ML VIAL ONE (07:00)
[2018-01-13] MEDS ORDERED: AZITHROMYCIN(*) 500 MG 500 MG in NS(*) 0.9% 250 ML BAG 250 ML IVPB ONE (07:10)
[2018-01-13] MEDS ORDERED: CITRIC ACID/SOD CITRATE 30 ML ONE (07:19)
[2018-01-13] MEDS ORDERED: PROPOFOL EMUL(*) 10MG/ML 20 ML 20 ML ONE (07:23)
[2018-01-13] MEDS ORDERED: OXYTOCIN 10 UNIT/ML SDV ONE (07:27)
[2018-01-13] MEDS ORDERED: fentaNYL CITR 100 MCG/2 ML AMP ONE (07:29)
[2018-01-13] MEDS ORDERED: MORPHINE PF 5 MG/10 ML AMP ONE (08:03)
[2018-01-13] MEDS ORDERED: SIMETHICONE 80 MG CHEW CHEW PRN (09:10)
[2018-01-13] MEDS ORDERED: ZOLPIDEM TARTRATE 10 MG TAB PO PRN (09:10)
[2018-01-13] MEDS ORDERED: LANOLIN OINT 7 GM TUBE TP PRN (09:10)
[2018-01-13] MEDS ORDERED: OXYTOCIN 30 UNIT/D5LR 500 ML 500 ML IV PRN (09:10)
[2018-01-13] MEDS ORDERED: PROMETHAZINE 25 MG/ML 1 ML AMP IVP PRN (09:10)
[2018-01-13] MEDS ORDERED: INFLUENZA VIRUS VAC 0.5ML SYR IM ONE (09:10)
[2018-01-13] MEDS ORDERED: ACETAMINOPHEN 325 MG TAB PO PRN (09:10)
[2018-01-13] MEDS ORDERED: ONDANSETRON 4 MG/2 ML VIAL IV PRN (09:10)
--- NOTE | 2018-01-13 09:28 | Post Operative Note ---
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 Post-Op Diagnosis: Same Delivered Procedure Findings: live born female @ 0736 with APGARS 8/8 weight 3054gm 6#11oz. 3vc/ip. Normal tubes and ovaries bilaterally Procedure(s): 1* LTCS Specimen Removed:(Maybe N/A): 0 Complications: 0 known Fluids Fluids: 700 cc LR u/o= 100 cc Estimated Blood Loss: 800 Dictated Date OP Note Dictated: Jan 13, 2018 Time OP Note Dictated: 09:28 JAYA AMARO DO Jan 13, 2018 09:28
[2018-01-13] MEDS ORDERED: MORPHINE 2 MG/ML SYR IVP PRN (09:30)
[2018-01-13] MEDS ORDERED: KETOROLAC 30 MG/ML VIAL IVP SCH ×2 (10:00→22:00)
--- NOTE | 2018-01-13 10:19 | OPERATIVE REPORT 1 ---
EVENT DATE: January 13, 2018 SURGEON: Ramesh Amaro DO ANESTHESIA: Epidural. CULTURAL ANTHROPOLOGY PROFESSOR: Susan Johansen MD PREOPERATIVE DIAGNOSIS 1. 32-year-old, 1, para 0 at 38 and 0/7 weeks gestation. 2. Chronic hypertension with superimposed preeclampsia. 3. Persistent hand presentation. 4. Arrest of dilation. POSTOPERATIVE DIAGNOSIS 1. 32-year-old, 2, para 0 at 38 and 0/7 weeks gestation. 2. Chronic hypertension with superimposed preeclampsia. 3. Persistent hand presentation. 4. Arrest of dilation. 5. Delivery. PROCEDURE PERFORMED Primary low transverse section. FINDINGS Liveborn female infant at 0736 with Apgars of 8 and 8, weighing 3054 grams, 6 pounds 11 ounces, three vessel cord intact placenta, three vessel cord with normal tubes and ovaries bilaterally. ESTIMATED BLOOD LOSS 800 cc. PATHOLOGY None. COMPLICATIONS None known. IV FLUIDS 700 cc. URINE OUTPUT 100 cc. CONDITION Stable x2. Mother and infant to recovery. COUNTS Correct for all needles, lap sponges and instruments. LABOR SUMMARY Patient is a 32-year-old 2, para 0 at 38 and 0/7 weeks gestation who presented for induction of labor secondary to chronic hypertension. Patient did receive Cervidil on day #1 overnight and did make it to 3 cm. She was started on oxytocin and after a few hours of oxytocin underwent amniotomy with clear amniotic fluid. Shortly before rupture of membranes, she did receive an epidural for pain control. Oxytocin was infused. Patient made slow progress but eventually did get to 6--7 cm. She did have what was noted to be hand just in front of the vertex. The hope was with the descent of the infant's head the hand would slip back behind the head or the baby would pull the hand back itself and she would continue to dilate. After approximately four hours with no cervical change with adequate contractions, it was decided that secondary to persistent hand presentation and arrest of dilation that we could proceed with delivery. The patient was counseled accordingly and appropriate consents were signed. DESCRIPTION OF PROCEDURE The patient was taken to the operating room, where she was prepped and draped in the usual sterile manner. Her epidural was re-bolused and found to be adequate. A Pfannenstiel skin incision was then created. This incision extended sharply down the layer of the fascia. When the fascia was visualized, it was notched bilaterally and fascial incisions were extended bluntly. The rectus muscles were at midline. The peritoneum was entered bluntly with insertion of fingers. Bladder blade was placed. A bladder flap was created with Metzenbaum scissors. Bladder blade was replaced. A low transverse incision was created on the uterus with scalpel and this was carried sharply down to the layer until amniotic fluid was noted. With incision of the uterus made, the hysterotomy was extended laterally with surgeon's fingers. Surgeon's hand was placed inside the hysterotomy. The infant's head was grasped, raised and brought to the level of the hysterotomy. With fundal pressure, the 's head was delivered in control manner followed by the posterior shoulder in gentle upward motion and anterior shoulder in gentle downward motion. The remainder of the infant's body delivered with fundal pressure. At this point, the mouth and nose were bulb suctioned. It was noted that it was the 's left hand that was in front of the vertex. There was some swelling noted at the hand but the infant was moving hands and fingers. At this point, the cord was clamped approximately 1- 1/2 minutes after delivery and cut. The was shown to its' mother and was then taken to the warmer with the supervisory lifeguard. At this point, the placenta was delivered with gentle manual extraction. The uterus was then exteriorized but it was difficult to see the lower aspect of the incision so at this point the uterus was placed back in the abdomen. It was closed in situ. First layer was done with 0 Monocryl in a running manner. The second layer was a 0 Monocryl for imbrication. This was done for hemostasis. With the incision hemostatic, the right and left gutters were cleaned of all clot and debris. The peritoneum was closed with 2-0 Monocryl. The fascia was closed with 0 looped PDS. The subcutaneous tissue was noted to be greater than 2 cm. It was closed with 3-0 Monocryl. The skin incision was then closed with 4-0 Monocryl in a subcuticular manner. Dermabond was placed over the incision. The patient was then cleaned. She was transferred to a recovery bed and transferred to the recovery room in stable condition. LUIS MIGUEL
[2018-01-13] MEDS: DLR(*) 1000 ML BAG 1,000 ML IV PRN ×2 (10:21→17:13)
[2018-01-13] MEDS ORDERED: NALBUPHINE HCL 10 MG/ML AMP IVP PRN (13:35)
[2018-01-13] MEDS ORDERED: NALOXONE HCL 0.4 MG/ML VIAL IV PRN (13:35)
[2018-01-13] MEDS ORDERED: diphenhydrAMINE 25 MG CAP PO PRN (13:35)
[2018-01-13] MEDS ORDERED: fentaNYL CITR 100 MCG/2 ML AMP IVP ONE (14:00)
[2018-01-13] MEDS: KETOROLAC 30 MG/ML VIAL IVP SCH ×2 (14:53→20:38)
[2018-01-13] MEDS: DOCUSATE CALCIUM 240 MG CAP PO SCH (20:38)
[2018-01-13] MEDS: FAMOTIDINE 20 MG TAB PO SCH (20:38)
[2018-01-14] MEDS: DLR(*) 1000 ML BAG 1,000 ML IV PRN (01:27)
[2018-01-14] MEDS: IBUPROFEN 800 MG TAB PO SCH ×3 (02:54→18:11)
[2018-01-14 03:02] VITALS: BP 138/77
[2018-01-14 06:59] LABS: PLATELET COUNT, AUTOMATED 154 K/uL (150-450)
[2018-01-14] MEDS: ENOXAPARIN 40 MG/0.4ML SYR SC SCH (08:45)
[2018-01-14] MEDS: DOCUSATE CALCIUM 240 MG CAP PO SCH ×2 (08:45→19:58)
[2018-01-14] MEDS: FAMOTIDINE 20 MG TAB PO SCH ×2 (08:45→19:58)
[2018-01-14 09:30] VITALS: BP 144/66
[2018-01-14 11:59] VITALS: BP 134/76
--- NOTE | 2018-01-14 12:29 | OB/GYN Progress Note ---
OB Subjective Progress Notes Subjective Doing good this morning. Just got out of the shower. Reports pain controlled with medications, pain only along incision. Tolerating PO intake. Voiding with out any difficulty. Denies any headache or visual changes. GI: NEG Nausea, NEG Vomiting, NEG Flatus, NEG Bowel Movement : Voiding Well Pain: Mild, Comfortable, Tolerating PO Pain Meds Neurological: No Headache, No Other Eyes: No Visual Disturbances OB Objective Physical Exam Vital Signs Date Time Temp Pulse Resp B/P (MAP) Pulse Ox O2 Delivery O2 Flow Rate FiO2 01/14/18 11:59 98.8 20 134/76 (95) 90 Room Air 01/14/18 09:30 92 01/14/18 03:02 0.5 Intake and Output 01/14/18 07:00 Intake Total 2510 ml Output Total 600 ml Balance 1910 ml Intake Oral 510 ml IV Total 2000 ml Other 0 ml Output Urine Total 600 ml # Voids 7 General Appearance: Alert/Awake/No Acute Distress Neurological: No Gross deficits Eyes: Normal Extraocular Movement & Vison Cardiovascular: Normal Rhythm & Peripheral Pulses Respiratory: No Respiratory Distress, Clear to Auscultation Incision: Clean, Dry, Intact, Dermabond : Normal Musculoskeletal: No Weakness/Pain Extremities: No Cyanosis,Clubbing or Edema Integumentary: Skin Intact without Lesions or Rash Psychological: Alert & Oriented X3, Appropriate Mood & Affect Result Diagram: 01/14/18 0634 01/14/18 0634 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 Pt labs remain stable. Pt meeting post goals. Will plan for discharge 01/15/18 (2) Obesity complicating Problem Qualifiers (1) Obesity complicating : Trimester: third trimester Qualified Codes: O99.213 - Obesity complicating , third trimester JAYA TAVAREZ DO Jan 14, 2018 12:29
--- NOTE | 2018-01-14 12:33 | OB/GYN Discharge Summary ---
Discharge Summary Reason for Hosp/Final Diag: (1) Chronic hypertension affecting Hospital Course & Plan: Pt presented for IOL secondary to chronic hypertension. Laboratory work up revealed super imposed preeclampsia. Pt underwent Cervidil induction followed by oxytocin. Pt did get to 6-7 cm dilated but there was a persistant hand presentation that wouldn't self resolve. After 4 hours of 0 cervical change with adequate oxytocin she opted for a . See delivery note for details of procedure. Pt remained in house for 2 days post . She was meeting all post operative goals with out any problems. Lab work up n ever changed and patients condition remained stable. She was discharged home on POD #2. (2) Obesity complicating Lates Vital Signs Vital Signs Date Time Temp Pulse Resp B/P (MAP) Pulse Ox O2 Delivery O2 Flow Rate FiO2 01/14/18 11:59 98.8 20 134/76 (95) 90 Room Air 01/14/18 09:30 92 01/14/18 03:02 0.5 Weight (Pounds): 318 Result Diagram: 01/14/18 0634 01/14/18 0634 Condition: Improved Discharge: Home Home Meds Active Scripts Sertraline Hcl (ZOLOFT) 50 Mg Tablet, 1 TAB PO QDAY for 60 Days, #60 TAB 5 Refi lls Take 1/2 tablet po daily for one week, then increase to 1 tablet po daily Prov:BLESSING HONG MD 10/03/17 Reported Medications Acetaminophen (TYLENOL) 325 Mg Tablet, 325 MG PO, TAB 01/02/18 Vits W-Ca,Fe,Fa(<1MG) ( VITAMINS) 1 Each Tablet, 1 EACH PO DAILY, TAB 06/08/16 Follow up with: [facility] [phone] Follow up in: 6 wks PP or PO, 2 wks PO Discharge Diet: As Tolerates Discharge Activity: As Tolerates, No Heavy Lifting > 10lb, Pelvic Rest Problem Qualifiers (1) Obesity complicating : Trimester: third trimester Qualified Codes: O99.213 - Obesity complicating , third trimester DORIAN TAVAREZColten CORLEY Jan 14, 2018 12:33
[2018-01-14 15:49] VITALS: BP 149/90
[2018-01-14] MEDS ORDERED: MAGNESIUM HYDROXIDE* 30ML UDCP PO PRN (16:50)
[2018-01-14] MEDS ORDERED: BISACODYL 10 MG SUPP PR PRN (16:50)
[2018-01-14 19:11] VITALS: BP 155/99
[2018-01-14] MEDS ORDERED: ONDANSETRON 4 MG ODT TABDP SL PRN (19:55)
[2018-01-14 21:05] VITALS: BP 155/89
[2018-01-15 00:40] VITALS: BP 131/68
[2018-01-15] MEDS: IBUPROFEN 800 MG TAB PO SCH ×2 (03:22→11:56)
[2018-01-15 03:26] VITALS: BP 158/89
[2018-01-15] MEDS ORDERED: IBUP800T37 PO (05:57)
[2018-01-15] MEDS ORDERED: PER PO (05:57)
--- NOTE | 2018-01-15 06:07 | OB/GYN Progress Note ---
OB Subjective Progress Notes Subjective Doing good this morning. Reports relief after BM last night. Tolerating Po intake. Ambulatory. Voiding with out any difficulty. . Lochia appropriate. GI: NEG Nausea, NEG Vomiting, NEG Flatus, NEG Bowel Movement : Voiding Well, Vaginal Bleeding, Scant Pain: Mild, Tolerating PO Pain Meds Neurological: No Headache, No Other Eyes: No Visual Disturbances OB Objective Physical Exam Vital Signs Date Time Temp Pulse Resp B/P (MAP) Pulse Ox O2 Delivery O2 Flow Rate FiO2 01/15/18 03:26 98.2 96 18 158/89 (112) 94 Room Air 01/14/18 03:02 0.5 Intake and Output 01/15/18 07:00 Output Total 1100 ml Balance -1100 ml Output Urine Total 1100 ml # Voids 2 # Bowel Movements 1 General Appearance: Alert/Awake/No Acute Distress Neurological: No Gross deficits Eyes: Normal Extraocular Movement & Vison Cardiovascular: Normal Rhythm & Peripheral Pulses Respiratory: No Respiratory Distress, Clear to Auscultation Incision: Clean, Dry, Intact, Dermabond : Normal Musculoskeletal: No Weakness/Pain Extremities: No Cyanosis,Clubbing or Edema Integumentary: Skin Intact without Lesions or Rash Psychological: Alert & Oriented X3, Appropriate Mood & Affect Result Diagram: 01/14/1834 01/14/1834 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 Follow up in 2-3 weeks for Post Op visit. (2) Obesity complicating Problem Qualifiers (1) Obesity complicating : Trimester: third trimester Qualified Codes: O99.213 - Obesity complicating , third trimester JAYA TAVAREZ DO Jan 15, 2018 06:07
[2018-01-15] MEDS ORDERED: DIPHTH/TETANUS/ACEL. PERTUSSIS IM ONLY ONE (09:00)
[2018-01-15] MEDS ORDERED: MEASLES,MUMP,RUBELLA VAC 0.5ML SUBQ ONE (09:00)
[2018-01-15] MEDS: FAMOTIDINE 20 MG TAB PO SCH (09:41)
[2018-01-15] MEDS: ENOXAPARIN 40 MG/0.4ML SYR SC SCH (09:41)
[2018-01-15] MEDS: DOCUSATE CALCIUM 240 MG CAP PO SCH (09:41)
[2018-01-15 10:20] VITALS: BP 172/92
--- NOTE | 2018-01-15 12:51 | Anesthesia Post Eval Note ---
Anesthesia Post Eval Note Vital Signs Date Time Temp Pulse Resp B/P (MAP) Pulse Ox O2 Delivery O2 Flow Rate FiO2 01/15/18 10:20 98.9 95 16 172/92 (118) Room Air 01/15/18 03:26 94 01/14/18 03:02 0.5 Pt able to participate in Eval: Yes Cardiovascular Status: Satisfactory Respiratory Status: Satisfactory Pain Managment: Satisfactory PO Nausea/Vomiting: Satisfactory Temperature Management: Satisfactory Mental Status: Satisfactory, Alert, Oriented X3 Post-Op Hydration Status: Satisfactory, Tolerating PO Well, Voiding w/o Difficulty Anesthesia Type: LEB Anesthesia Tolerance: LP site clear, no redness or edema. Denies headache or any residual paresthesia. Vital Signs Stable, Patient comfortable and condition stable. CELESTE SLATER FIELD TECHNICAL SUPPORT CONSULTANT Jan 15, 2018 12:51
== END 2018-01-15 13:25 | disposition home or self-care (01) | DRG 765 ==
LOC: OB 20:41
PROVIDERS: ADMIT Obstetrics & Gynecology; ATTEND Obstetrics & Gynecology
PROC: 3E0P7VZ Introduction of Hormone into Female Reproductive, Via Natural or Artificial Opening (ICD-10-PCS; 2018-01-11)
PROC: 10907ZC Drainage of Amniotic Fluid, Therapeutic from Products of Conception, Via Natural or Artificial Opening (ICD-10-PCS; 2018-01-12)
PROC: 10D00Z1 Extraction of Products of Conception, Low, Open Approach (ICD-10-PCS; principal; 2018-01-13 07:19)
DX: O11.4 Pre-existing hypertension with pre-eclampsia, complicating childbirth (principal); Z68.43 Body mass index [BMI] 50.0-59.9, adult; Z3A.38 38 weeks gestation of pregnancy; Z37.0 Single live birth; O64.4XX0 Obstructed labor due to shoulder presentation, not applicable or unspecified; O62.0 Primary inadequate contractions; O99.214 Obesity complicating childbirth; O99.344 Other mental disorders complicating childbirth; F41.9 Anxiety disorder, unspecified; F32.9 Major depressive disorder, single episode, unspecified; E66.01 Morbid (severe) obesity due to excess calories; O10.92 Unspecified pre-existing hypertension complicating childbirth
CPT/HCPCS: 36415; 82040; 82247; 82310; 82374; 82435; 82565; 82570; 82947; 84075; 84132; 84155; 84156; 84295; 84450; 84460; 84520; 85014; 85018; 85025; 85027; 86703; 86850; 86900; 86901; J0456; J0690; J1650; J1885; J2001; J2270; J2370; J2405; J2590; J2704; J2765; J3010; J3490; J7050; J7120